=== PATIENT | female | born 1945 | race Caucasian/White ===

== ENCOUNTER 2018-03-07 16:28 | Emergency (ER) | payer MEDICAID ==
[~2018-03-07] VITALS: Ht 162.6 cm; Wt 86.2 kg
[2018-03-07] MEDS ORDERED: ACETAMINOPHEN ES 500 MG TABLET ONE (16:41)
[2018-03-07] MEDS ORDERED: ONDANSETRON ODT 4 MG TAB.RAPDIS ONE (16:41)
[2018-03-07] MEDS: ONDANSETRON ODT 4 MG TAB.RAPDIS SL ONE (16:44)
[2018-03-07] MEDS ORDERED: FUROSEMIDE TAB 20MG (16:44)
[2018-03-07] MEDS: ACETAMINOPHEN ES 500 MG TABLET PO ONE (16:44)
[2018-03-07] MEDS ORDERED: BYSTOLIC 10 MG (16:44)
[2018-03-07] MEDS ORDERED: TRAZODONE TAB 50MG (16:44)
[2018-03-07] MEDS ORDERED: POT CL MICRO (16:44)
[2018-03-07] MEDS ORDERED: BROMFENAC 0.09% (16:44)
[2018-03-07 18:01] LABS: BASOPHILS % (AUTO) 0.5 % (0.0-2.0); EOSINOPHILS # (AUTO) 0.1 K/uL (0.0-0.7); HEMATOCRIT 43.5 % (31.2-41.9); HEMOGLOBIN 15.2 g/dL (10.9-14.3); LYMPHOCYTES # (AUTO) 2.7 K/uL (20.0-40.0); LYMPHOCYTES % (AUTO) 35.1 % (20.5-51.5); MEAN CORPUSCULAR HEMOGLOBIN 30.4 uug (24.7-32.8); MEAN CORPUSCULAR HGB CONC 35 g/dL (32.3-35.6); MEAN CORPUSCULAR VOLUME 86.8 fL (75.5-95.3); MONOCYTES # (AUTO) 0.8 K/uL (2.0-10.0); MONOCYTES % (AUTO) 10.7 % (0.0-11.0); NEUTROPHILS % (AUTO) 52.7 % (38.5-71.5); PLATELET COUNT (AUTO) 195 K/uL (179-408); RED BLOOD CELL COUNT(AUTO) 5.01 MIL/uL (3.63-4.92); WHITE BLOOD COUNT (AUTO) 7.6 K/uL (3.8-11.8)
[2018-03-07 18:06] LABS: CARBON DIOXIDE 29 mmol/L (21-32); CHLORIDE 103 mmol/L (98-107); GLUCOSE 111 mg/dL (74-106); POTASSIUM 4.1 mmol/L (3.5-5.1); UREA NITROGEN, BLOOD 23 mg/dL (7-18)
[2018-03-07 18:18] LABS: ALANINE AMINOTRANSFERASE 42 U/L (14-59); ALKALINE PHOSPHATASE 76 U/L (50-136); ASPARTATE AMINOTRANSFERASE 23 U/L (15-37); BILIRUBIN,DIRECT 0.1 mg/dL (0.0-0.2); BILIRUBIN,TOTAL 0.4 mg/dL (0.2-1.0); TOTAL PROTEIN, SERUM 7.1 g/dL (6.4-8.2)
--- NOTE | 2018-03-07 18:31 | NUR ---
Patient discharged to home in stable conditon. Written and verbal after care instructions given. Patient verbalizes understanding of instructions.
== END 2018-03-07 18:33 | disposition home or self-care (01) ==
LOC: ER 16:29
DX: S20.212A Contusion of left front wall of thorax, initial encounter (principal); S13.4XXA Sprain of ligaments of cervical spine, initial encounter; I10 Essential (primary) hypertension; E78.5 Hyperlipidemia, unspecified; Z79.891 Long term (current) use of opiate analgesic; Z79.899 Other long term (current) drug therapy; V43.62XA Car passenger injured in collision with other type car in traffic accident, initial encounter; Y93.89 Activity, other specified; Y99.8 Other external cause status; Y92.410 Unspecified street and highway as the place of occurrence of the external cause
CPT/HCPCS: 36415; 70030-TC; 70450; 71101; 72125; 84443; 85025; 85730; 93005; A4663; A9150; Q0162

== ENCOUNTER 2023-07-22 08:22 | Emergency (ER) | payer MEDICARE, OTHER ==
[~2023-07-22] VITALS: Ht 162.6 cm; Wt 86.2 kg
[~2023-07-22 08:22] MED LIST: BROMFENAC 0.09%; BYSTOLIC 10 MG; FUROSEMIDE TAB 20MG; POT CL MICRO; TRAZODONE TAB 50MG
[2023-07-22] MEDS ORDERED: DIGO125T PO (08:37)
[2023-07-22] MEDS ORDERED: APIX5TAB PO (08:37)
[2023-07-22] MEDS ORDERED: AMLO10TA4 PO (08:37)
[2023-07-22] MEDS ORDERED: POTA20PA40 PO (08:37)
[2023-07-22] MEDS ORDERED: NEBI10TA2 PO (08:37)
[2023-07-22] MEDS ORDERED: FURO-152 PO (08:37)
[2023-07-22 09:04] LABS: BASOPHILS % (AUTO) 0.7 % (0.0-2.0); EOSINOPHILS # (AUTO) 0.1 K/uL (0.0-0.7); EOSINOPHILS % (AUTO) 0.9 % (0.0-7.0); HEMATOCRIT 47.3 % (31.2-41.9); HEMOGLOBIN 15.9 g/dL (10.9-14.3); LYMPHOCYTES # (AUTO) 1.9 K/uL (0.8-4.8); MEAN CORPUSCULAR HEMOGLOBIN 30.2 uug (24.7-32.8); MEAN CORPUSCULAR HGB CONC 34 g/dL (32.3-35.6); MEAN CORPUSCULAR VOLUME 89.8 fL (75.5-95.3); MONOCYTES # (AUTO) 0.8 K/uL (0.1-1.30); MONOCYTES % (AUTO) 12.7 % (0.0-11.0); NEUTROPHILS # (AUTO) 3.6 K/uL (1.8-8.9); NEUTROPHILS % (AUTO) 56.7 % (38.5-71.5); PLATELET COUNT (AUTO) 190 K/uL (179-408); RED BLOOD CELL COUNT(AUTO) 5.27 MIL/uL (3.63-4.92); RED CELL DISTRIBUTION WIDTH 13.9 % (12.3-17.7); WHITE BLOOD COUNT (AUTO) 6.4 K/uL (3.8-11.8)
[2023-07-22 09:07] LABS: DIFFERENTIAL COMMENT 1
[2023-07-22 09:31] LABS: CALCIUM 9.5 mg/dL (8.5-10.1); CARBON DIOXIDE 29 mmol/L (21-32); CHLORIDE 105 mmol/L (98-107); CREATININE 0.8 mg/dL (0.6-1.3); GLUCOSE 123 mg/dL (74-106); NT-PRO BNP 1060 pg/mL (0-125); POTASSIUM 3.8 mmol/L (3.5-5.1); SODIUM SERUM 139 mmol/L (136-145); UREA NITROGEN, BLOOD 22 mg/dL (7-18)
[2023-07-22 10:08] LABS: ALBUMIN 3.4 g/dL (3.4-5.0); BILIRUBIN,DIRECT 0.2 mg/dL (0.0-0.2); BILIRUBIN,TOTAL 0.8 mg/dL (0.2-1.0); TOTAL PROTEIN, SERUM 7.3 g/dL (6.4-8.2)
[2023-07-22 10:39] LABS: THYROID STIMULATING HORMONE 0.579 mIU/mL (0.358-3.740)
[2023-07-22 11:36] VITALS: BP 141/71; TEMP 98.3; O2SAT 98
== END 2023-07-22 11:53 | disposition home or self-care (01) ==
LOC: ER 08:22
DX: R07.89 Other chest pain (principal); R06.00 Dyspnea, unspecified; I48.91 Unspecified atrial fibrillation; I11.0 Hypertensive heart disease with heart failure; I50.9 Heart failure, unspecified; E78.5 Hyperlipidemia, unspecified; Z79.899 Other long term (current) drug therapy
CPT/HCPCS: 99285; 93307; 71045; 80061; 80076; 80048; 83036; 83880; 84443; 85025; 84484 ×2; 36415; 93005; J7040; A4663

== ENCOUNTER 2023-09-17 08:40 | Emergency (ER) | payer MEDICARE, OTHER ==
[~2023-09-17] VITALS: Ht 167.6 cm; Wt 82.6 kg
[~2023-09-17 08:40] MED LIST changes: +AMLO10TA4 PO; +APIX5TAB PO; -BROMFENAC 0.09%; -BYSTOLIC 10 MG; +DIGO125T PO; +FURO-152 PO; -FUROSEMIDE TAB 20MG; +NEBI10TA2 PO; -POT CL MICRO; +POTA20PA40 PO; -TRAZODONE TAB 50MG
[2023-09-17 09:42] LABS: BASOPHILS # (AUTO) 0.1 K/UL (0.0-0.2); BASOPHILS % (AUTO) 1.2 % (0.0-2.0); EOSINOPHILS % (AUTO) 0.7 % (0.0-7.0); HEMATOCRIT 47.4 % (31.2-41.9); HEMOGLOBIN 16.1 g/dL (10.9-14.3); LYMPHOCYTES % (AUTO) 33.8 % (20.5-51.5); MEAN CORPUSCULAR HEMOGLOBIN 30.4 uug (24.7-32.8); MEAN CORPUSCULAR HGB CONC 34 g/dL (32.3-35.6); MEAN CORPUSCULAR VOLUME 89.7 fL (75.5-95.3); MONOCYTES # (AUTO) 0.8 K/uL (0.1-1.30); MONOCYTES % (AUTO) 13.2 % (0.0-11.0); NEUTROPHILS # (AUTO) 3.1 K/uL (1.8-8.9); NEUTROPHILS % (AUTO) 51.1 % (38.5-71.5); PLATELET COUNT (AUTO) 198 K/uL (179-408); RED BLOOD CELL COUNT(AUTO) 5.28 MIL/uL (3.63-4.92); RED CELL DISTRIBUTION WIDTH 13.7 % (12.3-17.7); WHITE BLOOD COUNT (AUTO) 6.1 K/uL (3.8-11.8)
[2023-09-17 09:51] LABS: DIFFERENTIAL COMMENT 1
[2023-09-17 10:13] LABS: CREATININE 0.8 mg/dL (0.6-1.3); POTASSIUM 3.8 mmol/L (3.5-5.1)
[2023-09-17] MEDS ORDERED: IV NS 1000 ML 1,000 ML IV ONE (10:15)
[2023-09-17 10:26] LABS: ALBUMIN 3.3 g/dL (3.4-5.0); BILIRUBIN,DIRECT 0.2 mg/dL (0.0-0.2); BILIRUBIN,TOTAL 0.8 mg/dL (0.2-1.0); TOTAL PROTEIN, SERUM 7.3 g/dL (6.4-8.2)
[2023-09-17 10:48] LABS: *BILIRUBIN,URIN NEGATIVE (NEGATIVE); *BLOOD, URINE NEGATIVE (NEGATIVE); *CLARITY,URINE CLEAR (CLEAR); *COLOR,URINE YELLOW (YELLOW); *KETONES,URINE NEGATIVE (NEGATIVE); *PROTEIN,URINE TRACE (NEGATIVE); *UROBILINOGEN,URINE 0.2 E.U./dl (NORMAL); LEUKOCYTE ESTERASE ,URINE NEGATIVE (NEGATIVE); NITRITE, URINE NEGATIVE (NEGATIVE); PH,URINE 6.5 (5.0-8.0); UGLUCOSE NEGATIVE (NEGATIVE)
[2023-09-17] MEDS ORDERED: IOHEXOL 300MG/ML 100 ML INFUS..BTL ONE (10:54)
[2023-09-17] MEDS ORDERED: IV NORMAL SALINE 250 ML IV ONE (10:54)
[2023-09-17] MEDS ORDERED: SWABABLE VALVE TRANSFER SET EA MC ONE (10:54)
[2023-09-17 11:32] LABS: BACTERIA,URINE FEW /HPF (NONE SEEN); RBC,URINE 0-3 /HPF (0-3); SQUAMOUS EPITHELIAL CELL,UR FEW /HPF (NONE SEEN); WBC,URINE 0-3 /HPF (0-3)
[2023-09-17 11:46] LABS: THYROID STIMULATING HORMONE 0.758 mIU/mL (0.358-3.740)
[2023-09-17 14:27] VITALS: BP 130/70; TEMP 98; O2SAT 100
[2023-09-18 09:07] LABS: CANCER AG, 125 33.4 U/mL (0.0-38.1)
== END 2023-09-17 14:27 | disposition home or self-care (01) ==
LOC: ER 08:40
DX: R07.81 Pleurodynia (principal); I11.0 Hypertensive heart disease with heart failure; I50.9 Heart failure, unspecified; E78.5 Hyperlipidemia, unspecified; I48.91 Unspecified atrial fibrillation; Z79.899 Other long term (current) drug therapy
CPT/HCPCS: 99285; 71260; 96360; 96361; 80061; 80076; 80048; 81001; 83036; 83690; 84443; 85025; 36415; 93005; 74150; 74177; 86300 ×2; 86304; 82378; 86301; 71250; Q9967; J7040 ×2; A4606; A4663

== ENCOUNTER 2024-08-12 08:02 | Emergency (ER) | payer MEDICARE, OTHER ==
[~2024-08-12] VITALS: Ht 167.6 cm; Wt 81.6 kg
[~2024-08-12 08:02] MED LIST changes: +ASPI81TA31 PO; +DEXA0.5E PO; +LOSA25TA27 PO; +METF-440 PO
[2024-08-12 08:35] LABS: BASOPHILS % (AUTO) 0.4 % (0.0-2.0); EOSINOPHILS % (AUTO) 0.3 % (0.0-7.0); LYMPHOCYTES # (AUTO) 2.4 K/uL (0.8-4.8); LYMPHOCYTES % (AUTO) 35.9 % (20.5-51.5); MEAN CORPUSCULAR HEMOGLOBIN 31.2 uug (24.7-32.8); MEAN CORPUSCULAR HGB CONC 34 g/dL (32.3-35.6); MEAN CORPUSCULAR VOLUME 91.9 fL (75.5-95.3); MONOCYTES # (AUTO) 0.9 K/uL (0.1-1.30); MONOCYTES % (AUTO) 12.6 % (0.0-11.0); NEUTROPHILS # (AUTO) 3.4 K/uL (1.8-8.9); NEUTROPHILS % (AUTO) 50.8 % (38.5-71.5); PLATELET COUNT (AUTO) 172 K/uL (179-408); RED BLOOD CELL COUNT(AUTO) 5.69 MIL/uL (3.63-4.92); RED CELL DISTRIBUTION WIDTH 14.2 % (12.3-17.7); WHITE BLOOD COUNT (AUTO) 6.8 K/uL (3.8-11.8)
[2024-08-12] MEDS: IV NORMAL SALINE 1000 ML BAG IV ONE (08:35)
[2024-08-12 08:47] LABS: CALCIUM 9.1 mg/dL (8.5-10.1); CARBON DIOXIDE 29 mmol/L (21-32); CHLORIDE 105 mmol/L (98-107); CREATININE 1.1 mg/dL (0.6-1.3); GLUCOSE 118 mg/dL (74-106); POTASSIUM 4.5 mmol/L (3.5-5.1); SODIUM SERUM 138 mmol/L (136-145); UREA NITROGEN, BLOOD 28 mg/dL (7-18)
[2024-08-12 08:49] LABS: *BILIRUBIN,URIN NEGATIVE (NEGATIVE); *CLARITY,URINE CLEAR (CLEAR); *COLOR,URINE YELLOW (YELLOW); *KETONES,URINE NEGATIVE (NEGATIVE); *PROTEIN,URINE NEGATIVE (NEGATIVE); *UROBILINOGEN,URINE 0.2 E.U./dl (NORMAL); LEUKOCYTE ESTERASE ,URINE TRACE (NEGATIVE); NITRITE, URINE NEGATIVE (NEGATIVE); PH,URINE 5.5 (5.0-8.0)
[2024-08-12 08:51] LABS: DIFFERENTIAL COMMENT 1
[2024-08-12 08:53] LABS: ALANINE AMINOTRANSFERASE 35 U/L (14-59); ALBUMIN 3.3 g/dL (3.4-5.0); ALKALINE PHOSPHATASE 56 U/L (50-136); ASPARTATE AMINOTRANSFERASE 17 U/L (15-37); BILIRUBIN,DIRECT 0.3 mg/dL (0.0-0.2); BILIRUBIN,TOTAL 0.9 mg/dL (0.2-1.0); LIPASE 42 U/L (16-77); TOTAL PROTEIN, SERUM 7.3 g/dL (6.4-8.2)
[2024-08-12 08:58] LABS: HEMOGLOBIN 17.8 g/dL (10.9-14.3)
[2024-08-12 08:59] LABS: HEMATOCRIT 52.3 % (31.2-41.9)
[2024-08-12 09:00] LABS: *BLOOD, URINE TRACE (NEGATIVE); UGLUCOSE 2+ (NEGATIVE)
[2024-08-12 09:17] LABS: MAGNESIUM 2.2 mg/dL (1.8-2.4)
[2024-08-12] MEDS ORDERED: IOHEXOL 350 100 ML INFUS..BTL ONE (09:23)
[2024-08-12] MEDS ORDERED: SWABABLE VALVE TRANSFER SET EA MC ONE (09:24)
[2024-08-12] MEDS ORDERED: IV NORMAL SALINE 250 ML IV ONE (09:24)
[2024-08-12 10:18] VITALS: O2SAT 97
[2024-08-12 15:13] LABS: BACTERIA,URINE FEW /HPF (NONE SEEN); RBC,URINE 0-3 /HPF (0-3); SQUAMOUS EPITHELIAL CELL,UR FEW /HPF (NONE SEEN)
[2024-08-13 06:06] LABS: CARCINOEMBRYONIC AG (CEA) 2.3 ng/mL (0.0-4.7)
== END 2024-08-12 10:36 | disposition home or self-care (01) ==
LOC: ER 08:02
DX: R07.89 Other chest pain (principal); R10.9 Unspecified abdominal pain; E01.0 Iodine-deficiency related diffuse (endemic) goiter; I48.91 Unspecified atrial fibrillation; E11.9 Type 2 diabetes mellitus without complications; E78.5 Hyperlipidemia, unspecified; I50.9 Heart failure, unspecified; Z79.82 Long term (current) use of aspirin; Z79.84 Long term (current) use of oral hypoglycemic drugs; Z79.01 Long term (current) use of anticoagulants; Z79.899 Other long term (current) drug therapy
CPT/HCPCS: 99285; 71275; 96360; 80076; 80048; 81001; 82607; 83690; 83735; 84443; 85025; 85379; 36415; 74177; 93005; 83605; 82378; 86301; Q9967; J7040; A4606; A4663